=== PATIENT | female | born 1980 | race Two or more races ===

== ENCOUNTER → 2016-09-02 | Outpatient (CLI) | payer OTHER ==
[~2016-09-02] MED LIST: BENADRYL25 M3 PO; CHLORTHALIDONE25 M1 PO; CHLORTHALIDONE25 MG PO; HYDROCODON-ACE1 EAC9 PO; HYDROCODONE-APA1 T55 PO; KCL PO; MOBIC15 MG PO; NORCO 10-325 TA1 TAB PO; VOLTAREN75 MG PO
--- NOTE | ~2016-09-02 | EKG ---
PATIENT: DEQUAN PERALTA UNIT #: [id number] Ventricular Rate: 82 BPM Atrial Rate: 82 BPM P-R Interval: 206 ms QRS Duration: 82 ms Q-T Interval: 360 ms QTC Calculation(Bezet): 420 ms P Indian: 60 degrees Calculated R Indian: 1 degrees Calculated T Indian: 20 degrees Diagnosis Line: Normal sinus rhythm Diagnosis Line: Moderate voltage criteria for LVH, may be normal Diagnosis Line: variant Diagnosis Line: Nonspecific T wave abnormality Diagnosis Line: Abnormal ECG Diagnosis Line: When compared with ECG of 12-JUN-2015 13:25, Diagnosis Line: No significant change was found Diagnosis Line: Confirmed by GABRIELLA GRANADOS MD ([id number]) on Diagnosis Line: 09/02/2016 4:41:01 PM INTERPRETING MD: DARWIN JIMÉNEZ
[2016-09-02 16:18] LABS: CREATININE SERUM 0.6 mg/dL (0.6-1.4)
[2016-09-02 16:25] LABS: POTASSIUM 2.6 mmol/L (3.5-5.1)
== END | disposition home or self-care (01) ==
LOC: CAMB 13:46
PROVIDERS: Surgery
DX: Z01.818 Encounter for other preprocedural examination (principal)
CPT/HCPCS: 36415; 80048; 93005

== ENCOUNTER → 2016-09-09 | Day surgery (SDC) | payer OTHER ==
--- NOTE | ~2016-09-09 | OR ---
Unit #: [id number] #: [id number] Patient: DEQUAN PERALTA [id number] [address] [place], [place] [address] [id number] O MR#: [id number] NAME: DEQUAN PERALTA ROOM: Date of Procedure: 09/09/2016 Admission Date: 09/09/2016 Surgeon: Timbo Gamble Jr., M.D. : 1980 Attending Physician: Timbo Gamble Jr., M.D. Referring Physician: Timbo Gamble Jr., M.D. Primary Care Physician: Lisa Altman M.D. OPERATIVE REPORT INDICATIONS FOR PROCEDURE The patient is a 36-year-old black female with multiple keloids from cuts in the past in [place]. The keloids of the neck were removed and radiation performed by Dr. Cuevas, but the patient has developed recurrent painful keloid. She is brought back for reexcision of these. PREOPERATIVE DIAGNOSIS Recurrent keloids of the neck. POSTOPERATIVE DIAGNOSIS Recurrent keloids of the neck, noting thick dense keloids bilaterally. ANESTHESIA General with endotracheal intubation. PROCEDURE PERFORMED Excision of keloids of the right and left neck. DESCRIPTION OF PROCEDURE The patient was positioned in supine position with her head turned to the left and prepped and draped in routine fashion for excision keloid of the right neck. An elliptical incision was made around the keloid with it being totally excised from the surrounding tissue down to the deeper subcutaneous tissue. After it was completely removed, hemostasis achieved with Bovie cautery. The deeper tissue approximated with interrupted 3-0 Vicryl sutures. Skin edges approximated with several interrupted 2-0 nylon mattress stitches for traction and stainless-steel skin clips and skin stapling device. The patient's head was then turned to the right. She was re-prepped and draped in routine fashion for excision of the keloid on the left side. An elliptical incision was made around the keloid being totally excised from the surrounding tissue. After it was removed, it was sent to pathology. Hemostasis was achieved with Bovie cautery. The deeper tissue approximated with interrupted 3-0 Vicryl sutures. Skin edges approximated with stainless-steel skin clips and skin stapling device. Ointment was applied to both wounds bilaterally along with dressings sponges. Sterile dressings were applied externally. Estimated blood loss less than 100 mL. The patient received less 2000 mL crystalloid solution during the procedure. Sponges and instruments counts were correct x3. No drains used. No complications. The patient was taken to the recovery room with stable vital signs in satisfactory condition. Unit #: [id number] #: [id number] Patient: DEQUAN PERALTA Dictated by... Timbo Gamble Jr., M.D. JMB/macarena TD: 09/10/2016 01:29 JOB #: [id number] OPERATIVE REPORT Page 1 of 1 X Timbo Gamble MD X PROCEDURE OPERATIVE NOTE
== END | disposition home or self-care (01) ==
LOC: CSUR 05:54
DX: L08.89 Other specified local infections of the skin and subcutaneous tissue (principal); L91.0 Hypertrophic scar; I10 Essential (primary) hypertension; E66.9 Obesity, unspecified; F32.9 Major depressive disorder, single episode, unspecified; F41.9 Anxiety disorder, unspecified; Z68.34 Body mass index [BMI] 34.0-34.9, adult; Z79.2 Long term (current) use of antibiotics; Z79.1 Long term (current) use of non-steroidal anti-inflammatories (NSAID); Z79.891 Long term (current) use of opiate analgesic; Z79.899 Other long term (current) drug therapy; Z98.890 Other specified postprocedural states
CPT/HCPCS: 84132; 84703; 88304; J0131; J0330; J1100; J1170; J1720; J1885; J2250; J2405; J2710; J3010

== ENCOUNTER 2016-09-23 06:20 | Emergency (ER) | payer OTHER | END 2016-09-23 11:33 | disposition home or self-care (01) | LOC: CED 06:20 | DX: L50.1 Idiopathic urticaria (principal); I10 Essential (primary) hypertension; Z79.899 Other long term (current) drug therapy | CPT/HCPCS: 96374; 96375; 99283; J1200 ==

== ENCOUNTER 2016-09-29 18:12 | Emergency (ER) | payer OTHER ==
--- NOTE | ~2016-09-29 | CT114 ---
[facility] A Service [facility] RADIOLOGY TEXT RESULTS PATIENT: DEQUAN PERALTA LOCATION: [facility] : [birth year] UNIT #: [id number] AGE: [address]: Tim Odom MD SEX: F ORDER DR: [id number] [facility] [address] [place], [place] [address] [id number] E MR#: [id number] Acc #: [id number] NAME: DEQUAN PERALTA : 1980 SEX: F STUDY DATE/TIME: 09/29/2016 22:04 UNIT: [facility] ROOM: STUDY DESCRIPTION: CT Soft Tissue Neck W Cont Attending Physician: Tim Odom M.D. Ordering Physician: Gina Juarez M.D. Primary Care Physician: Lisa Altman M.D. MEDICAL IMAGING REPORT This report is preliminary unless electronic signature is present EXAM CT neck soft tissues with contrast INDICATIONS Status post keloid removal 09/09/2016. Right-sided neck surgical site reopened 2 days ago with right-sided neck pain. PROCEDURE Contrast-enhanced CT of the neck utilizing soft tissue technique. The CT exam was performed with one or more of the following radiation dose reduction techniques: automatic exposure control, adjustment of mA and/or kV according to patient size, and iterative reconstruction. FINDINGS There is a linear soft tissue defect along the lateral right neck. No enhancing mass or drainable fluid collection. No abnormal cervical adenopathy. Parotid and submandibular glands are unremarkable. There is a 8 mm hypoenhancing nodule in the right lobe of the thyroid gland. IMPRESSION 1. Linear soft tissue defect along the skin of the lateral right neck with no abnormal enhancing mass or drainable fluid collection. 2. 8-mm nodule in the right lobe of the thyroid gland would be best evaluated with a dedicated thyroid ultrasound on a nonemergent basis. Dictated by... Abhijeet Urbina M.D. THIS IS AN ELECTRONICALLY VERIFIED REPORT [facility] A Service [facility] RADIOLOGY TEXT RESULTS PATIENT: DEQUAN PERALTA [id number] : [birth year] UNIT #: [id number] AGE: [address]: Tim Odom MD SEX: F ORDER DR: Abhijeet Urbina M.D. at 09/30/2016 9:55 PM KENNY/jose a TD: 09/30/2016 08:18 JOB #: [id number] MEDICAL IMAGING REPORT Page 1 of 1 COPY
[2016-09-29 19:36] LABS: BASOPHIL% 0.1 % (0-2.5); HEMATOCRIT 38.8 % (35.0-45.0); HEMOGLOBIN 12.6 gm/dL (12.0-16.0); LYMPHOCYTE# 0.8 X10e3 (1.0-3.5); LYMPHOCYTE% 8.9 % (17.0-45.0); MEAN CELL VOLUME 87.5 FL (83-96); MEAN CORPUSCULAR HEMOGLOBIN 28.4 PG (28-34); MEAN CORPUSCULAR HGB CONC 32.5 g/dL (30-36); MEAN PLATELET VOLUME 9.6 FL (6.5-11.5); MONOCYTE# 0.4 X10e3 (0-1.0); MONOCYTE% 5.2 % (3.0-12.0); NEUTROPHIL# 7.3 X10e3 (1.5-7.1); NEUTROPHIL% 85.8 % (40-75); PLATELET COUNT 206 X10e3 (140-420); RED BLOOD COUNT 4.44 X10e (3.90-5.30); RED CELL DISTRIBUTION WIDTH 14.3 % (11.0-15.5); WHITE BLOOD COUNT 8.6 X10e3 (4.0-10.5)
[2016-09-29 19:37] LABS: DIFF IND NO
[2016-09-29 20:00] LABS: CREATININE SERUM 0.6 mg/dL (0.6-1.4); GLOM FILT RATE Estimated 116.4 mL/min (>60)
== END 2016-09-29 23:42 | disposition home or self-care (01) ==
LOC: CED 18:12
PROVIDERS: Emergency Medicine
DX: T81.30XA Disruption of wound, unspecified, initial encounter (principal); E04.1 Nontoxic single thyroid nodule
CPT/HCPCS: 36415; 70491; 80048; 84703; 85025; 99284; Q9967